=== PATIENT | female | born 1990 | race Caucasian/White ===

== ENCOUNTER 2016-06-22 15:52 | Outpatient (CLI) | payer MEDICARE, OTHER | END 2016-06-22 18:26 | disposition home or self-care (01) | LOC: GENOP 15:52 | PROVIDERS: Obstetrics & Gynecology | DX: O42.913 Preterm premature rupture of membranes, unspecified as to length of time between rupture and onset of labor, third trimester (principal); Z3A.28 28 weeks gestation of pregnancy | CPT/HCPCS: 36415; 76815; 80307; 81001; 84702 ==